=== PATIENT | female | born 1985 | race Caucasian/White ===

== ENCOUNTER 2017-04-30 13:45 | Emergency (ER) | payer MEDICAID | END 2017-04-30 17:09 | disposition home or self-care (01) | LOC: D.ER 13:45 | DX: J01.90 Acute sinusitis, unspecified (principal) ==

== ENCOUNTER 2018-06-12 15:37 | Emergency (ER) | payer MEDICAID ==
[~2018-06-12] VITALS: Ht 154.9 cm; Wt 72.7 kg
[2018-06-12 15:44] VITALS: BP 126/80; Ht 154.9 cm; Wt 72.7 kg
[2018-06-12] MEDS ORDERED: TYLENOL W/CODEI1 TAB PO (17:19)
[2018-06-12] MEDS ORDERED: ALBUTEROL SULF8.5 GM INH (17:19)
[2018-06-12] MEDS ORDERED: ZPAK PO (17:19)
== END 2018-06-12 17:59 | disposition home or self-care (01) ==
LOC: D.ER 15:37
DX: J40 Bronchitis, not specified as acute or chronic (principal); R09.89 Other specified symptoms and signs involving the circulatory and respiratory systems; F17.200 Nicotine dependence, unspecified, uncomplicated

== ENCOUNTER 2018-06-19 13:20 | Emergency (ER) | payer MEDICAID ==
[~2018-06-19] VITALS: Ht 154.9 cm; Wt 72.7 kg
[~2018-06-19 13:20] MED LIST: ALBUTEROL SULF8.5 GM INH; TYLENOL W/CODEI1 TAB PO; ZPAK PO
[2018-06-19 13:27] VITALS: Ht 154.9 cm; Wt 72.7 kg
[2018-06-19] MEDS ORDERED: VIBRAMYCIN 100100 MG PO (16:14)
[2018-06-19] MEDS ORDERED: PHENERGAN DM SYR5 ML PO (16:14)
[2018-06-19] MEDS ORDERED: VENTOLIN HFA18 GM INH (16:14)
[2018-06-19 16:39] VITALS: BP 99/65
== END 2018-06-19 16:40 | disposition home or self-care (01) ==
LOC: D.ER 13:20
DX: J01.90 Acute sinusitis, unspecified (principal); J20.9 Acute bronchitis, unspecified; R09.89 Other specified symptoms and signs involving the circulatory and respiratory systems

== ENCOUNTER 2019-02-21 17:04 | Emergency (ER) | payer SELFPAY ==
[~2019-02-21] VITALS: Ht 154.9 cm; Wt 72.7 kg
[~2019-02-21 17:04] MED LIST changes: +PHENERGAN DM SYR5 ML PO; +VENTOLIN HFA18 GM INH; +VIBRAMYCIN 100100 MG PO
[2019-02-21 17:36] VITALS: Ht 154.9 cm; Wt 72.7 kg
[2019-02-21 18:13] LABS: BASOPHILS 0.3 % (0-2); EOSINOPHILS 3.4 % (0-7); HEMATOCRIT 33.7 % (36.0-48.0); HEMOGLOBIN 10.7 g/dL (12-16); IMMATURE GRANULOCYTES 0.7 % (0-5); LYMPHOCYTES 20.8 % (15-50); MCH 26.9 pg (26.0-34.0); MCHC 31.8 g/dL (31.0-37.0); MCV 84.7 fL (80.0-100.0); MEAN PLATELET VOLUME 11.2 fL (7.4-10.4); MONOCYTES 6.6 % (2-11); NEUTROPHILS 68.2 % (40-80); PLATELET COUNT 284 10x3/uL (130-400); RBC 3.98 10x6/uL (4.00-5.40); RDW 14.2 % (11.5-14.5); WBC 8.7 10x3/uL (4.8-10.8)
[2019-02-21] MEDS ORDERED: DICLOFENAC SODI50 MG PO (19:13)
[2019-02-21] MEDS ORDERED: MUCINEX DM ER1 EAC1 PO (19:13)
[2019-02-21 20:07] VITALS: BP 114/66
== END 2019-02-21 20:08 | disposition home or self-care (01) ==
LOC: D.ER 17:04
PROVIDERS: Emergency Medicine
DX: R05 Cough (principal)